=== PATIENT | male | born 1945 | race Caucasian/White ===

== ENCOUNTER 2020-10-12 08:05 | Inpatient (IN) | payer OTHER ==
[~2020-10-12] VITALS: Ht 180.3 cm; Wt 112.2 kg
[~2020-10-12 08:05] MED LIST: ASCO500T11 PO; ASPI-543 PO; ATEN50TA PO; CHOL400T13 PO; FENO145T27 PO; IBUP400T22 PO; MAGN250T8 PO; MULT-223 PO; OMEG100078 PO; PREG200C19 PO; PREG50CA PO; ROSU10TA16 PO; TIOT17SP IN; TRIA75TA55 PO
[2020-10-12] MEDS ORDERED: ACETAMINOPHEN IV 1000 MG/100ML (10MG/ML) IV ONE (11:30)
[2020-10-12] MEDS ORDERED: PREGABALIN CAPSULE 75 MG CAP PO ONE (11:30)
[2020-10-12] MEDS ORDERED: CELECOXIB 100 MG CAP PO ONE (11:30)
[2020-10-12] MEDS ORDERED: BUPIVACAINE W/ EPINEPH 0.25% INJ 50ML MDV ONE (12:20)
[2020-10-12] MEDS ORDERED: KETOROLAC TROMETH 30 MG/ML 1ML VIAL ONE (12:22)
[2020-10-12] MEDS ORDERED: VANCOMYCIN HCL 1000 MG VL ONE ×2 (12:23→12:29)
[2020-10-12] MEDS: ceFAZolin 1GM/50ML 100 ML IV ONE ×2 (13:02→14:13)
[2020-10-12] MEDS ORDERED: BUPIVACAINE 0.5% P/F INJ 10 ML VIAL ONE (13:03)
[2020-10-12] MEDS: ceFAZolin 1GM 2 GM in D5W 5% 100 ML IV ONE ×2 (14:12→14:13)
[2020-10-12] MEDS ORDERED: PROPOFOL 10 MG/ML 20 ML IV ONE (14:16)
[2020-10-12] MEDS ORDERED: HYDROmorphone HCL 2 MG/ML VL ONE (14:17)
[2020-10-12] MEDS ORDERED: SUCCINYLCHOLINE CHLORIDE 20 MG/ML 10ML VIAL IV ONE (14:18)
[2020-10-12] MEDS: TRANEXAMIC ACID 20 ML ONE ×2 (14:40→14:44)
[2020-10-12] MEDS ORDERED: MORPHINE SULF(PF) 0.5MG/ML 10ML VIAL ONE (14:47)
[2020-10-12] MEDS ORDERED: ONDANSETRON HCL 4 MG/2 ML VIAL ONE (15:01)
[2020-10-12] MEDS ORDERED: NITROGLYCERIN 0.4 MG SL TAB SL PRN ×2 (16:00→16:45)
[2020-10-12] MEDS ORDERED: MORPHINE SULF INJ 2 MG/ML SYRINGE 1ML IV PRN ×2 (16:00→16:45)
[2020-10-12] MEDS: ceFAZolin 1GM/50ML 50 ML IV SCH ×2 (16:45→22:45)
[2020-10-12] MEDS ORDERED: OXYCODONE W/ ACETAMINOPHEN 5/325MG TABLET PO PRN (16:45)
[2020-10-12] MEDS: LACTATED RINGER'S 1,000 ML IV SCH (16:45)
[2020-10-12] MEDS ORDERED: ACETAMINOPHEN 325 MG TAB PO PRN (16:45)
[2020-10-12] MEDS ORDERED: traMADol HCL 50 MG TAB PO PRN (16:45)
[2020-10-12] MEDS ORDERED: KETOROLAC TROMETH 60MG/2ML VIAL ONE (16:46)
[2020-10-12] MEDS ORDERED: ONDANSETRON HCL 4 MG/2 ML VIAL IV PRN (17:00)
[2020-10-12] MEDS ORDERED: NALOXONE HCL 0.4 MG/ML VIAL IV PRN (17:00)
[2020-10-12] MEDS ORDERED: HYDROmorphone HCL 2 MG/ML VL IV PRN (17:00)
[2020-10-12] MEDS: ACCU-CHEK COMFORT CURVE STRIP VI SCH ×2 (17:00→22:00)
[2020-10-12 18:00] VITALS: BP 130/59
[2020-10-12] MEDS: KETOROLAC TROMETH 30 MG/ML 1ML VIAL IV SCH (18:00)
[2020-10-12 22:00] VITALS: BP 107/48
[2020-10-12] MEDS: Magnesium Oxide 250 MG TAB PO SCH (22:00)
[2020-10-12] MEDS: ATORVASTATIN 20 MG TAB PO SCH (22:00)
[2020-10-12] MEDS: oxyCODONE ER 10 MG TAB PO SCH (22:00)
[2020-10-12] MEDS: Fenofibrate 145 MG TAB PO SCH (22:00)
[2020-10-12] MEDS: DOCUSATE SOD 100 MG CAP PO SCH (22:00)
[2020-10-12] MEDS: SODIUM CHLOR 0.9% PF (SALINE LOCK) 10ML VIAL/SYR IV SCH (22:00)
[2020-10-12] MEDS: PREGABALIN 25 MG CAP PO SCH (22:00)
[2020-10-13] MEDS: ONDANSETRON HCL 4 MG/2 ML VIAL IV PRN (00:12)
[2020-10-13] MEDS: LACTATED RINGER'S 1,000 ML IV SCH ×3 (02:45→22:45)
[2020-10-13] MEDS: HYDROmorphone HCL 2 MG/ML VL IV PRN ×5 (03:00→22:00)
[2020-10-13 03:55] VITALS: BP 107/48
[2020-10-13] MEDS: ceFAZolin 1GM/50ML 50 ML IV SCH (04:45)
[2020-10-13 05:00] VITALS: BP 113/51
[2020-10-13] MEDS: SODIUM CHLOR 0.9% PF (SALINE LOCK) 10ML VIAL/SYR IV SCH ×3 (06:00→22:00)
[2020-10-13] MEDS: KETOROLAC TROMETH 30 MG/ML 1ML VIAL IV SCH ×4 (06:00→20:00)
[2020-10-13 06:57] LABS: Hematocrit 34.2 % (41.0-53.0); Hemoglobin 12.2 g/dL (13.5-17.5)
[2020-10-13] MEDS: ACCU-CHEK COMFORT CURVE STRIP VI SCH ×4 (07:00→22:00)
[2020-10-13 07:03] LABS: Potassium 4.3 mmol/L (3.5-5.1)
[2020-10-13 07:12] LABS: Albumin 3.2 g/dL (3.4-5.0); BUN/Creatinine Ratio 20.9; Bilirubin, Total 0.4 mg/dL (0.2-1.0); Total Protein 6.4 g/dL (6.4-8.2)
[2020-10-13 09:00] VITALS: BP 112/51
[2020-10-13] MEDS: Magnesium Oxide 250 MG TAB PO SCH ×2 (10:00→22:00)
[2020-10-13] MEDS ORDERED: Omega-3 Fatty Acids (Fish Oil) 1,000 MG CAP PO SCH (10:00)
[2020-10-13] MEDS ORDERED: TRIAMTERENE/HCTZ 75/50MG TABLET PO SCH (10:00)
[2020-10-13] MEDS: CHOLECALCIFEROL 400 UNIT PO SCH (10:00)
[2020-10-13] MEDS ORDERED: TIOTROPIUM BROMIDE MONOHYDRATE 2.5 MCG IN SCH (10:00)
[2020-10-13] MEDS ORDERED: ATENOLOL 50 MG TAB PO SCH (10:00)
[2020-10-13] MEDS: DOCUSATE SOD 100 MG CAP PO SCH ×2 (10:08→22:00)
[2020-10-13] MEDS: PREGABALIN 25 MG CAP PO SCH ×2 (10:08→22:00)
[2020-10-13] MEDS: oxyCODONE ER 10 MG TAB PO SCH (10:09)
[2020-10-13] MEDS: MULTIPLE VITAMINS W/ MINERALS TAB PO SCH (10:09)
[2020-10-13] MEDS: ASCORBIC ACID 500 MG TAB PO SCH (10:09)
[2020-10-13] MEDS: ENOXAPARIN SOD 40 MG/0.4 ML SYRINGE SC SCH (10:10)
[2020-10-13 13:00] VITALS: BP 95/45
[2020-10-13] MEDS: IPRATROPIUM BROM 0.5 MG/2.5ML INH SOL NEB PRN (15:39)
[2020-10-13 16:42] VITALS: BP 110/49
[2020-10-13 22:00] VITALS: BP 105/58
[2020-10-13] MEDS: Fenofibrate 145 MG TAB PO SCH (22:00)
[2020-10-13] MEDS: ATORVASTATIN 20 MG TAB PO SCH (22:00)
[2020-10-14 05:00] VITALS: BP 101/54
[2020-10-14] MEDS: SODIUM CHLOR 0.9% PF (SALINE LOCK) 10ML VIAL/SYR IV SCH ×3 (06:00→22:00)
[2020-10-14] MEDS: KETOROLAC TROMETH 30 MG/ML 1ML VIAL IV SCH ×4 (06:00→17:33)
[2020-10-14] MEDS: ACCU-CHEK COMFORT CURVE STRIP VI SCH ×4 (07:00→22:00)
[2020-10-14 07:24] LABS: Basophils # (auto) 0 10 ^3/uL (0-0.2); Basophils % (auto) 0.3 % (0.0-2.0); Eosinophils # (auto) 0.2 10 ^3/uL (0-0.8); Eosinophils % (auto) 3.9 % (0.0-7.0); Hematocrit 30.5 % (41.0-53.0); Hemoglobin 10.8 g/dL (13.5-17.5); Lymphocytes # (auto) 0.7 10 ^3/uL (0.4-5.4); Lymphocytes % (auto) 11.6 % (10.0-50.0); Mean Corpuscular Hemoglobin 33.2 pg (28.0-32.0); Mean Corpuscular Hgb Conc. 35.3 g/dL (32.0-36.0); Mean Corpuscular Volume 94.2 fL (80.0-100.0); Monocytes # (auto) 0.9 10 ^3/uL (0-1.3); Monocytes % (auto) 13.6 % (0.0-12.0); Neutrophils # (auto) 4.4 10 ^3/uL (1.6-8.6); Neutrophils % (auto) 70.6 % (37.0-80.0); Platelet Count (auto) 111 10^3/uL (140-450); Red Blood Cells 3.24 10^6/uL (4.5-5.90); White Blood Cell 6.3 10^3/uL (4.4-10.8)
[2020-10-14 07:41] LABS: BUN/Creatinine Ratio 28.3; Calcium 8.8 mg/dL (8.5-10.1); Potassium 4.1 mmol/L (3.5-5.1)
[2020-10-14 09:00] VITALS: BP 111/53
[2020-10-14] MEDS: ASCORBIC ACID 500 MG TAB PO SCH (09:09)
[2020-10-14] MEDS: ENOXAPARIN SOD 40 MG/0.4 ML SYRINGE SC SCH (09:09)
[2020-10-14] MEDS: DOCUSATE SOD 100 MG CAP PO SCH ×2 (09:10→22:00)
[2020-10-14] MEDS: IPRATROPIUM BROM 0.5 MG/2.5ML INH SOL NEB PRN ×2 (09:10→09:31)
[2020-10-14] MEDS: PREGABALIN 25 MG CAP PO SCH ×2 (09:10→22:00)
[2020-10-14] MEDS: MULTIPLE VITAMINS W/ MINERALS TAB PO SCH (09:10)
[2020-10-14] MEDS: ATENOLOL 50 MG TAB PO SCH (09:11)
[2020-10-14] MEDS: oxyCODONE ER 10 MG TAB PO SCH ×3 (09:11→22:00)
[2020-10-14] MEDS: CHOLECALCIFEROL 400 UNIT PO SCH (09:14)
[2020-10-14] MEDS: Magnesium Oxide 250 MG TAB PO SCH ×2 (09:14→22:00)
[2020-10-14] MEDS: LACTATED RINGER'S 1,000 ML IV SCH ×2 (09:19→17:34)
[2020-10-14] MEDS ORDERED: OXYCODONE W/ ACETAMINOPHEN 5/325MG TABLET PO PRN (10:45)
[2020-10-14 13:38] VITALS: BP 113/55
[2020-10-14 17:00] VITALS: BP 124/62
[2020-10-14] MEDS: HYDROmorphone HCL 2 MG/ML VL IV PRN (21:13)
[2020-10-14 22:00] VITALS: BP 127/52
[2020-10-14] MEDS: Fenofibrate 145 MG TAB PO SCH (22:00)
[2020-10-14] MEDS: ATORVASTATIN 20 MG TAB PO SCH (22:00)
[2020-10-15] MEDS: ONDANSETRON HCL 4 MG/2 ML VIAL IV PRN ×2 (00:29→13:26)
[2020-10-15 05:05] VITALS: BP 127/68
[2020-10-15 06:01] LABS: Hematocrit 29.8 % (41.0-53.0); Hemoglobin 10.6 g/dL (13.5-17.5)
[2020-10-15 09:00] VITALS: BP 140/62
[2020-10-15] MEDS: CHOLECALCIFEROL 400 UNIT PO SCH (10:00)
[2020-10-15] MEDS: Magnesium Oxide 250 MG TAB PO SCH ×2 (10:00→20:55)
[2020-10-15] MEDS: ENOXAPARIN SOD 40 MG/0.4 ML SYRINGE SC SCH (10:47)
[2020-10-15] MEDS: MULTIPLE VITAMINS W/ MINERALS TAB PO SCH (10:48)
[2020-10-15] MEDS: ASCORBIC ACID 500 MG TAB PO SCH (10:48)
[2020-10-15] MEDS: PREGABALIN 25 MG CAP PO SCH ×2 (10:48→20:55)
[2020-10-15] MEDS: ATENOLOL 50 MG TAB PO SCH (10:49)
[2020-10-15] MEDS: DOCUSATE SOD 100 MG CAP PO SCH ×2 (11:23→20:55)
[2020-10-15 12:46] VITALS: BP 125/53
[2020-10-15] MEDS: SODIUM CHLOR 0.9% PF (SALINE LOCK) 10ML VIAL/SYR IV SCH ×2 (14:00→20:54)
[2020-10-15 17:00] VITALS: BP 133/65
[2020-10-15] MEDS: oxyCODONE ER 10 MG TAB PO SCH (20:54)
[2020-10-15] MEDS: Fenofibrate 145 MG TAB PO SCH (20:55)
[2020-10-15] MEDS: ATORVASTATIN 20 MG TAB PO SCH (20:55)
[2020-10-15 21:25] VITALS: BP 133/65
[2020-10-15 22:16] VITALS: BP 145/68
[2020-10-15] MEDS: KETOROLAC TROMETH 30 MG/ML 1ML VIAL IV SCH ×2 (23:20)
[2020-10-16 05:01] VITALS: BP 115/64
[2020-10-16] MEDS: KETOROLAC TROMETH 30 MG/ML 1ML VIAL IV SCH ×3 (05:24→18:00)
[2020-10-16] MEDS: SODIUM CHLOR 0.9% PF (SALINE LOCK) 10ML VIAL/SYR IV SCH ×2 (05:24→14:06)
[2020-10-16 08:37] VITALS: BP 134/68
[2020-10-16] MEDS: ASCORBIC ACID 500 MG TAB PO SCH (09:45)
[2020-10-16] MEDS: PREGABALIN 25 MG CAP PO SCH (09:45)
[2020-10-16] MEDS: MULTIPLE VITAMINS W/ MINERALS TAB PO SCH (09:45)
[2020-10-16] MEDS: ATENOLOL 50 MG TAB PO SCH (09:46)
[2020-10-16] MEDS: Magnesium Oxide 250 MG TAB PO SCH (09:47)
[2020-10-16] MEDS: ENOXAPARIN SOD 40 MG/0.4 ML SYRINGE SC SCH (09:47)
[2020-10-16] MEDS: CHOLECALCIFEROL 400 UNIT PO SCH (09:47)
[2020-10-16] MEDS: oxyCODONE ER 10 MG TAB PO SCH (09:55)
[2020-10-16] MEDS: DOCUSATE SOD 100 MG CAP PO SCH ×2 (09:55→10:20)
[2020-10-16 12:21] VITALS: BP 125/65
[2020-10-16 16:14] VITALS: BP 125/65
== END 2020-10-16 20:00 | DRG 470 ==
LOC: OVERFLOW 11:05 → EDSTATUS 11:45 → TELE-EAST 18:00 → EAST 10-15 12:16 → WEST WING 10-16 17:29
PROVIDERS: ADMIT Orthopaedic Surgery Adult Reconstructive Orthopaedic Surgery; ATTEND Internal Medicine
PROC: 8E0YXBZ Computer Assisted Procedure of Lower Extremity (ICD-10-PCS; 2020-10-12)
PROC: 0SRD069 Replacement of Left Knee Joint with Oxidized Zirconium on Polyethylene Synthetic Substitute, Cemented, Open Approach (ICD-10-PCS; principal; 2020-10-12 14:15)
PROC: 5A09357 Assistance with Respiratory Ventilation, Less than 24 Consecutive Hours, Continuous Positive Airway Pressure (ICD-10-PCS; 2020-10-13)
DX: M17.12 Unilateral primary osteoarthritis, left knee (principal); I10 Essential (primary) hypertension; E78.5 Hyperlipidemia, unspecified; E66.9 Obesity, unspecified; G62.9 Polyneuropathy, unspecified; Z85.46 Personal history of malignant neoplasm of prostate; Z20.822 Contact with and (suspected) exposure to COVID-19; Z68.37 Body mass index [BMI] 37.0-37.9, adult
CPT/HCPCS: 36415; 73562; 80048; 80053; 82962; 85014; 85018; 85025; 86850; 86900; 86901; 87426; 94640; 94660; 97110; 97116; 97530; C1776; G0378; J0131; J0330; J0690; J1885; J2405; J2704; J3490; J7060

== ENCOUNTER 2020-11-25 15:22 | Emergency (ER) | payer OTHER ==
[~2020-11-25] VITALS: Ht 180.3 cm; Wt 109.8 kg
[~2020-11-25 15:22] MED LIST changes: -ASPI-543 PO
[2020-11-25 18:15] LABS: Basophils # (auto) 0 10 ^3/uL (0-0.2); Basophils % (auto) 0.6 % (0.0-2.0); Eosinophils # (auto) 0.3 10 ^3/uL (0-0.8); Eosinophils % (auto) 5.5 % (0.0-7.0); Hematocrit 37.2 % (41.0-53.0); Hemoglobin 12.7 g/dL (13.5-17.5); Lymphocytes % (auto) 18.1 % (10.0-50.0); Mean Corpuscular Hemoglobin 31.7 pg (28.0-32.0); Mean Corpuscular Hgb Conc. 34.1 g/dL (32.0-36.0); Mean Corpuscular Volume 92.8 fL (80.0-100.0); Monocytes # (auto) 0.6 10 ^3/uL (0-1.3); Monocytes % (auto) 12.1 % (0.0-12.0); Neutrophils # (auto) 3.4 10 ^3/uL (1.6-8.6); Neutrophils % (auto) 63.7 % (37.0-80.0); Platelet Count (auto) 199 10^3/uL (140-450); Red Blood Cells 4.01 10^6/uL (4.5-5.90); Red Cell Distribution Width 15.4 % (11.8-14.3); White Blood Cell 5.3 10^3/uL (4.4-10.8)
[2020-11-25 18:46] LABS: Albumin 3.4 g/dL (3.4-5.0); Calcium 9.6 mg/dL (8.5-10.1); Magnesium 2.2 mg/dL (1.6-2.6); Potassium 3.9 mmol/L (3.5-5.1)
[2020-11-25 18:49] LABS: BUN/Creatinine Ratio 19.6; Bilirubin, Total 0.4 mg/dL (0.2-1.0); Total Protein 7.2 g/dL (6.4-8.2)
[2020-11-25 19:22] VITALS: BP 123/62
== END 2020-11-25 19:55 | disposition home or self-care (01) ==
LOC: ER 15:22
DX: M79.89 Other specified soft tissue disorders (principal); I10 Essential (primary) hypertension; E78.5 Hyperlipidemia, unspecified; Z79.899 Other long term (current) drug therapy
CPT/HCPCS: 36415; 80053; 83735; 85025; 93971

== ENCOUNTER 2021-11-09 06:14 | Inpatient (IN) | payer OTHER ==
[2021-11-08 10:53] LABS: Urine WBC None Seen /hpf (0 - 3)
[2021-11-08 11:02] LABS: Basophils # (auto) 0.2 10 ^3/uL (0-0.2); Basophils % (auto) 2.5 % (0.0-2.0); Eosinophils # (auto) 0.3 10 ^3/uL (0-0.8); Eosinophils % (auto) 4.3 % (0.0-7.0); Hematocrit 42.8 % (41.0-53.0); Mean Corpuscular Hemoglobin 31.7 pg (28.0-32.0); Mean Corpuscular Volume 90.5 fL (80.0-100.0); Monocytes # (auto) 0.7 10 ^3/uL (0-1.3); Monocytes % (auto) 11.7 % (0.0-12.0); Neutrophils # (auto) 3.9 10 ^3/uL (1.6-8.6); Neutrophils % (auto) 65.5 % (37.0-80.0); Nucleated Red Blood Cells % 0.2 %; Red Blood Cells 4.73 10^6/uL (4.5-5.90); Red Cell Distribution Width 13.5 % (11.8-14.3)
[2021-11-08 11:07] LABS: Urine Bacteria NONE SEEN /hpf (None Seen); Urine Blood Negative /uL (Negative); Urine Specific Gravity 1.014 (1.001-1.035)
[2021-11-08 11:21] LABS: INR 1.12 (0.9-1.15); Partial Thromboplastin Time 26.2 sec (23.6-33.0)
[2021-11-08 12:03] LABS: Potassium 3.8 mmol/L (3.5-5.1)
[2021-11-08 12:11] LABS: Albumin 3.8 g/dL (3.4-5.0); BUN/Creatinine Ratio 22.2; Bilirubin, Total 0.5 mg/dL (0.2-1.0); Calcium 9.9 mg/dL (8.5-10.1); Total Protein 7.1 g/dL (6.4-8.2)
[~2021-11-09] VITALS: Ht 177.8 cm; Wt 122.9 kg
[2021-11-09 05:00] VITALS: BP 108/50
[~2021-11-09 06:14] MED LIST changes: +ASPI1TAB20 PO; +CALC667C5 GT; -FENO145T27 PO; -IBUP400T22 PO
[2021-11-09] MEDS ORDERED: ceFAZolin 1GM/50ML 100 ML IV ONE (08:05)
[2021-11-09] MEDS ORDERED: HYDROmorphone HCL 2 MG/ML VL ONE ×2 (08:16→12:38)
[2021-11-09] MEDS ORDERED: fentaNYL CITRATE 100 MCG/2 ML VL ONE (08:16)
[2021-11-09] MEDS ORDERED: ROCURONIUM 10MG/ML 10ML VIAL IV ONE (08:16)
[2021-11-09] MEDS ORDERED: GLYCOPYRROLATE 0.2 MG/ML 1ML VIAL ONE ×2 (08:17→11:07)
[2021-11-09] MEDS ORDERED: DexAMETHasone SOD PHOS 10MG/1ML VIAL INJ ONE (08:17)
[2021-11-09] MEDS ORDERED: NEOSTIGMINE 1 MG/ML INJ (10mg/10ML VIAL) ONE (08:17)
[2021-11-09] MEDS ORDERED: PROPOFOL 10 MG/ML 20 ML IV ONE (08:17)
[2021-11-09] MEDS ORDERED: SODIUM CHLORIDE LOCK 10 ML ONE (08:17)
[2021-11-09] MEDS ORDERED: ONDANSETRON HCL 4 MG/2 ML VIAL ONE (08:17)
[2021-11-09] MEDS ORDERED: MIDAZOLAM HCL 2MG/2ML 2ml VIAL (1mg/ml) ONE (08:17)
[2021-11-09] MEDS ORDERED: CLINDAMYCIN 900MG IV 50 ML IV ONE (08:20)
[2021-11-09] MEDS ORDERED: ACCU-CHEK COMFORT CURVE STRIP VI ONE (08:45)
[2021-11-09] MEDS ORDERED: METOCLOPRAMIDE HCL 5MG/ml INJ 2ml VIAL IV PRN (08:45)
[2021-11-09] MEDS ORDERED: MORPHINE SULFATE 4 MG/ML SYR/VIAL IV PRN (08:45)
[2021-11-09] MEDS ORDERED: TRANEXAMIC ACID 20 ML ONE (08:48)
[2021-11-09] MEDS ORDERED: BUPIVACAINE W/ EPINEPH 0.25% INJ 50ML MDV ONE (08:48)
[2021-11-09] MEDS ORDERED: KETOROLAC TROMETH 30 MG/ML 1ML VIAL ONE ×2 (08:52→13:39)
[2021-11-09] MEDS ORDERED: VANCOMYCIN HCL 1000 MG VL ONE (08:53)
[2021-11-09] MEDS ORDERED: MORPHINE SULF PF 5 MG/10 ML VIAL ONE (08:55)
[2021-11-09] MEDS ORDERED: ONDANSETRON HCL 4 MG/2 ML VIAL IV PRN (09:00)
[2021-11-09] MEDS ORDERED: MORPHINE SULFATE INJECTION 2 MG/ML SYRG IV PRN (09:00)
[2021-11-09] MEDS ORDERED: HYDROmorphone HCL 2 MG/ML VL IV PRN (09:00)
[2021-11-09] MEDS ORDERED: NITROGLYCERIN 0.4 MG SL TAB SL PRN (09:00)
[2021-11-09] MEDS: TIOTROPIUM BROMIDE 2.5 MCG IN SCH (10:00)
[2021-11-09] MEDS: ATENOLOL 50 MG TAB PO SCH (10:00)
[2021-11-09] MEDS ORDERED: PATIENTS OWN MEDICATION (Pregabalin (Lyrica) 1 CAP) PO SCH ×2 (10:00)
[2021-11-09] MEDS ORDERED: PATIENTS OWN MEDICATION (Magnesium Oxide (Magnesium) 250 MG) PO SCH (10:00)
[2021-11-09] MEDS ORDERED: SUGAMMADEX 200mg/2ml Vial (100MG/ML) IV ONE ×2 (11:42→11:58)
[2021-11-09] MEDS ORDERED: MEPERIDINE HCL (25 MG/ML) 1ML VIAL ONE (12:12)
[2021-11-09] MEDS: LACTATED RINGER'S 1,000 ML IV SCH ×2 (12:20→19:00)
[2021-11-09] MEDS: HYDROmorphone HCL 2 MG/ML VL IV PRN ×4 (12:40→13:10)
[2021-11-09] MEDS: CLINDAMYCIN 600MG IV 50 ML IV SCH ×2 (13:29→19:09)
[2021-11-09] MEDS: KETOROLAC TROMETH 30 MG/ML 1ML VIAL IV SCH ×2 (13:40→18:00)
[2021-11-09] MEDS: DOCUSATE SOD 100 MG CAP PO SCH ×2 (13:45→21:18)
[2021-11-09] MEDS: CHOLECALCIFEROL (VITD3) 1,000UNIT=25mCg TAB PO SCH (13:45)
[2021-11-09] MEDS: MAGNESIUM OXIDE 400 MG TAB PO SCH ×2 (13:45→21:18)
[2021-11-09] MEDS: TRIAMTERENE/HCTZ 75/50MG TABLET PO SCH (13:45)
[2021-11-09] MEDS: ASCORBIC ACID 500 MG TAB PO SCH (13:45)
[2021-11-09] MEDS: PREGABALIN CAPSULE 75 MG CAP PO SCH ×2 (13:45→23:13)
[2021-11-09 15:27] VITALS: BP 123/56
[2021-11-09] MEDS: ceFAZolin 1GM/50ML 50 ML IV SCH ×2 (16:00→20:25)
[2021-11-09] MEDS ORDERED: CALC1TAB92 PO (16:58)
[2021-11-09] MEDS: HYDROcodone-ACET 10/325MG TAB PO PRN (21:17)
[2021-11-09] MEDS: ATORVASTATIN 20 MG TAB PO SCH (21:18)
[2021-11-09] MEDS ORDERED: PATIENTS OWN MEDICATION (Rosuvastatin Calcium (Crestor) 1 TAB) PO SCH (22:00)
[2021-11-10] MEDS: CLINDAMYCIN 600MG IV 50 ML IV SCH (00:29)
[2021-11-10] MEDS: ceFAZolin 1GM/50ML 50 ML IV SCH (02:00)
[2021-11-10 05:00] VITALS: BP 108/49
[2021-11-10] MEDS: LACTATED RINGER'S 1,000 ML IV SCH (05:00)
[2021-11-10] MEDS: HYDROcodone-ACET 10/325MG TAB PO PRN (05:24)
[2021-11-10] MEDS: KETOROLAC TROMETH 30 MG/ML 1ML VIAL IV SCH ×2 (05:24)
[2021-11-10 06:27] LABS: Basophils # (auto) 0 10 ^3/uL (0-0.2); Basophils % (auto) 0.1 % (0.0-2.0); Eosinophils # (auto) 0 10 ^3/uL (0-0.8); Hematocrit 36.8 % (41.0-53.0); Hemoglobin 12.9 g/dL (13.5-17.5); Lymphocytes # (auto) 0.5 10 ^3/uL (0.4-5.4); Lymphocytes % (auto) 4.5 % (10.0-50.0); Mean Corpuscular Volume 91.3 fL (80.0-100.0); Monocytes # (auto) 1.2 10 ^3/uL (0-1.3); Monocytes % (auto) 10.2 % (0.0-12.0); Neutrophils # (auto) 9.7 10 ^3/uL (1.6-8.6); Neutrophils % (auto) 85.2 % (37.0-80.0); Nucleated Red Blood Cells % 0.2 %; Red Blood Cells 4.03 10^6/uL (4.5-5.90); Red Cell Distribution Width 13.8 % (11.8-14.3); White Blood Cell 11.4 10^3/uL (4.4-10.8)
[2021-11-10 06:47] LABS: BUN/Creatinine Ratio 25.9; Calcium 9.3 mg/dL (8.5-10.1); Potassium 4.2 mmol/L (3.5-5.1)
[2021-11-10 08:48] VITALS: BP 105/48
[2021-11-10] MEDS: ATENOLOL 50 MG TAB PO SCH (10:00)
[2021-11-10] MEDS: TIOTROPIUM BROMIDE 2.5 MCG IN SCH (10:00)
[2021-11-10] MEDS: DOCUSATE SOD 100 MG CAP PO SCH ×2 (10:50→22:00)
[2021-11-10] MEDS: MAGNESIUM OXIDE 400 MG TAB PO SCH ×2 (10:50→22:00)
[2021-11-10] MEDS: PREGABALIN CAPSULE 75 MG CAP PO SCH ×2 (10:50→22:00)
[2021-11-10] MEDS: ASCORBIC ACID 500 MG TAB PO SCH (10:51)
[2021-11-10] MEDS: TRIAMTERENE/HCTZ 75/50MG TABLET PO SCH (10:51)
[2021-11-10] MEDS: CHOLECALCIFEROL (VITD3) 1,000UNIT=25mCg TAB PO SCH (10:51)
[2021-11-10 13:00] VITALS: BP 104/53
[2021-11-10 17:00] VITALS: BP_SYST 117; BP_SYST 145; BP_DIAS 50; BP_DIAS 80
[2021-11-10 22:00] VITALS: BP 131/60
[2021-11-10] MEDS: ATORVASTATIN 20 MG TAB PO SCH (22:00)
[2021-11-11] MEDS: HYDROcodone-ACET 10/325MG TAB PO PRN (06:13)
[2021-11-11 06:58] LABS: Hematocrit 35.8 % (41.0-53.0); Hemoglobin 12.8 g/dL (13.5-17.5)
[2021-11-11 09:00] VITALS: BP 128/67
[2021-11-11] MEDS: DOCUSATE SOD 100 MG CAP PO SCH (09:58)
[2021-11-11] MEDS: PREGABALIN CAPSULE 75 MG CAP PO SCH (09:58)
[2021-11-11] MEDS: MAGNESIUM OXIDE 400 MG TAB PO SCH (09:59)
[2021-11-11] MEDS: TRIAMTERENE/HCTZ 75/50MG TABLET PO SCH (09:59)
[2021-11-11] MEDS: ASCORBIC ACID 500 MG TAB PO SCH (10:00)
[2021-11-11] MEDS: CHOLECALCIFEROL (VITD3) 1,000UNIT=25mCg TAB PO SCH (10:00)
== END 2021-11-11 10:50 | disposition home or self-care (01) | DRG 483 ==
LOC: SUR 06:14 → OVERFLOW 10:23 → CENTRAL 15:02
PROVIDERS: ADMIT Orthopaedic Surgery Sports Medicine; ATTEND Internal Medicine
PROC: BP191ZZ Fluoroscopy of Left Shoulder using Low Osmolar Contrast (ICD-10-PCS; 2021-11-09)
PROC: 0RRK00Z Replacement of Left Shoulder Joint with Reverse Ball and Socket Synthetic Substitute, Open Approach (ICD-10-PCS; principal; 2021-11-09 09:09)
DX: M75.122 Complete rotator cuff tear or rupture of left shoulder, not specified as traumatic (principal); M19.012 Primary osteoarthritis, left shoulder; E66.9 Obesity, unspecified; Z68.38 Body mass index [BMI] 38.0-38.9, adult; Z20.822 Contact with and (suspected) exposure to COVID-19; I10 Essential (primary) hypertension; G47.33 Obstructive sleep apnea (adult) (pediatric); J44.9 Chronic obstructive pulmonary disease, unspecified; Z96.612 Presence of left artificial shoulder joint; R00.1 Bradycardia, unspecified; Z82.5 Family history of asthma and other chronic lower respiratory diseases; Z88.1 Allergy status to other antibiotic agents
CPT/HCPCS: 36415; 73020; 76000; 80048; 80053; 81001; 83036; 85014; 85018; 85025; 85610; 85730; 86850; 86900; 86901; G0378; J0690; J1100; J1885; J2250; J2405; J2704; J3490